=== PATIENT | female | born 2000 | race Caucasian/White ===

== ENCOUNTER 2018-03-15 23:45 | Outpatient (CLI) | payer OTHER ==
[2018-03-16 00:44] LABS: APPEARANCE,URINE SLIGHTLY-CLOUDY; BILIRUBIN,URINE NEGATIVE (NEGATIVE); COLOR,URINE YELLOW; GLUCOSE, URINE NEGATIVE (NEGATIVE); KETONES,URINE 20 mg/dL (NEGATIVE); LEUKOCYTE ESTERASE,URINE TRACE (NEGATIVE); NITRITE,URINE NEGATIVE (NEGATIVE); PROTEIN,URINE NEGATIVE (NEGATIVE); URINE SPECIFIC GRAVITY 1.028; UROBILINOGEN,URINE NEGATIVE mg/dL (<2.0)
[2018-03-16 01:05] LABS: URINE AMPHETAMINES SCREEN NEGATIVE; URINE BARBITURATES SCREEN NEGATIVE; URINE BENZODIAZEPINES SCREEN NEGATIVE; URINE COCAINE SCREEN NEGATIVE; URINE MARIJUANA (THC) SCREEN NEGATIVE; URINE METHADONE SCREEN NEGATIVE; URINE PHENCYCLIDINE SCREEN NEGATIVE
[2018-03-16] MEDS ORDERED: RINGERS SOLUTION,LACTATED 1,000 ML IV PRN (01:18)
--- NOTE | 2018-03-16 01:59 | RADIOLOGY REPORT (SQ) ---
EXAM DESCRIPTION: CLINICAL HISTORY: 17 years Female cervical length for contractions COMPLETED DATE/TME: 03/16/2018 00:00 COMPARISON: None. TECHNIQUE: Transabdominal duplex imaging performed to evaluate the pelvis. FINDINGS: Anterior placenta without evidence of abruption. heart rate 152 bpm. Cephalic presentation. Cervix measures 3.25 cm. Largest vertical pocket of amniotic fluid 6.7 cm. IMPRESSION: Cervical length 3.3 cm.
== END 2018-03-16 02:21 | disposition home or self-care (01) ==
LOC: LC 23:45
PROVIDERS: ATTEND Obstetrics & Gynecology
PROC: 4A1HXCZ Monitoring of Products of Conception, Cardiac Rate, External Approach (ICD-10-PCS; principal; 2018-03-15)
DX: O36.8120 Decreased fetal movements, second trimester, not applicable or unspecified (principal); O47.02 False labor before 37 completed weeks of gestation, second trimester; O99.282 Endocrine, nutritional and metabolic diseases complicating pregnancy, second trimester; E86.0 Dehydration; Z3A.26 26 weeks gestation of pregnancy
CPT/HCPCS: 76815; 80307; 81001

== ENCOUNTER 2018-05-20 17:42 | Outpatient (CLI) | payer OTHER ==
[2018-05-20 18:22] LABS: APPEARANCE,URINE CLOUDY; BILIRUBIN,URINE NEGATIVE (NEGATIVE); COLOR,URINE YELLOW; GLUCOSE, URINE NEGATIVE (NEGATIVE); KETONES,URINE NEGATIVE (NEGATIVE); LEUKOCYTE ESTERASE,URINE LARGE (NEGATIVE); NITRITE,URINE NEGATIVE (NEGATIVE); PROTEIN,URINE NEGATIVE (NEGATIVE); URINE SPECIFIC GRAVITY 1.021; UROBILINOGEN,URINE NEGATIVE mg/dL (<2.0)
[2018-05-20 18:45] LABS: URINE AMPHETAMINES SCREEN NEGATIVE; URINE BARBITURATES SCREEN NEGATIVE; URINE BENZODIAZEPINES SCREEN NEGATIVE; URINE COCAINE SCREEN NEGATIVE; URINE MARIJUANA (THC) SCREEN NEGATIVE; URINE METHADONE SCREEN NEGATIVE; URINE PHENCYCLIDINE SCREEN NEGATIVE
[2018-05-20] MEDS ORDERED: HYDROXYZINE PAMOATE 50 MG CAPSULE PO ONE (20:14)
[2018-05-20] MEDS ORDERED: HYDROXYZINE PAMOATE 50 MG CAPSULE ONE (20:15)
== END 2018-05-20 20:40 | disposition home or self-care (01) ==
LOC: LC 17:42
PROVIDERS: ATTEND Student in an Organized Health Care Education/Training Program
PROC: 4A1HXCZ Monitoring of Products of Conception, Cardiac Rate, External Approach (ICD-10-PCS; principal; 2018-05-20)
DX: Z34.93 Encounter for supervision of normal pregnancy, unspecified, third trimester (principal); Z3A.36 36 weeks gestation of pregnancy
CPT/HCPCS: 59025; 80307; 81005

== ENCOUNTER 2018-05-24 23:29 | Inpatient (IN) | payer OTHER ==
[2018-05-25 00:21] LABS: APPEARANCE,URINE SLIGHTLY-CLOUDY; BILIRUBIN,URINE NEGATIVE (NEGATIVE); COLOR,URINE YELLOW; GLUCOSE, URINE NEGATIVE (NEGATIVE); KETONES,URINE NEGATIVE (NEGATIVE); LEUKOCYTE ESTERASE,URINE NEGATIVE (NEGATIVE); NITRITE,URINE NEGATIVE (NEGATIVE); PROTEIN,URINE NEGATIVE (NEGATIVE); UROBILINOGEN,URINE NEGATIVE mg/dL (<2.0)
[2018-05-25] MEDS ORDERED: RINGERS SOLUTION,LACTATED 1,000 ML IV PRN (00:32)
[2018-05-25 00:34] LABS: URINE AMPHETAMINES SCREEN NEGATIVE; URINE BARBITURATES SCREEN NEGATIVE; URINE BENZODIAZEPINES SCREEN NEGATIVE; URINE COCAINE SCREEN NEGATIVE; URINE METHADONE SCREEN NEGATIVE; URINE PHENCYCLIDINE SCREEN NEGATIVE
[2018-05-25] MEDS ORDERED: MISOPROSTOL 0.1 MG TABLET PO ONE (00:36)
[2018-05-25 00:37] LABS: ABSOLUTE EOSINOPHILS # (AUTO) 0.1 10^3/uL (0.0-0.6); ABSOLUTE LYMPHOCYTES (AUTO) 2.1 10^3/uL (0.5-4.7); ABSOLUTE MONOCYTES (AUTO) 0.7 10^3/uL (0.1-1.4); ABSOLUTE NEUT (AUTO) 6.8 10^3/uL (1.7-8.2); BASOPHILS % (AUTO) 0.3 % (0-2); HEMATOCRIT 30.8 % (36.0-47.0); HEMOGLOBIN 10.7 g/dL (12.0-15.5); LYMPHOCYTES % (AUTO) 21.9 % (13-45); MEAN CORPUSCULAR HEMOGLOBIN 30.2 pg (27.0-33.4); MEAN CORPUSCULAR HGB CONC 34.6 g/dL (32.0-36.0); MEAN CORPUSCULAR VOLUME 87 fl (80-97); MONOCYTES % (AUTO) 7.2 % (3-13); PLATELET COUNT 394 10^3/uL (150-450); RED BLOOD COUNT 3.53 10^6/uL (3.72-5.28); RED CELL DISTRIBUTION WIDTH 12.7 % (11.5-14.0); SEGMENTED NEUTROPHILS % (AUTO) 69.6 % (42-78); TOTAL CELLS COUNTED % (AUTO) 100 %; WHITE BLOOD COUNT 9.8 10^3/uL (4.0-10.5)
[2018-05-25] MEDS ORDERED: PENICILLIN G POTASSIUM 5,000,000 UNIT in DEXTROSE 5%-WATER 100 ML IV ONE (00:37)
[2018-05-25] MEDS ORDERED: MISOPROSTOL 0.1 MG TABLET PV ONE (00:37)
[2018-05-25 00:39] LABS: URINE MARIJUANA (THC) SCREEN NEGATIVE
[2018-05-25] MEDS ORDERED: PENICILLIN G-K 5 MILLION UNIT VIAL ONE ×3 (00:42→08:39)
[2018-05-25] MEDS ORDERED: MISOPROSTOL 0.2 MG TABLET ONE ×2 (00:52→05:50)
[2018-05-25] MEDS ORDERED: MISOPROSTOL 0.1 MG TABLET ONE (00:53)
[2018-05-25] MEDS ORDERED: PROMETHAZINE HCL INJ 25 MG/1 ML VIAL ONE (02:33)
[2018-05-25] MEDS ORDERED: NALBUPHINE HCL INJ 10 MG/1 ML AMPULE ONE (02:33)
[2018-05-25] MEDS ORDERED: NALBUPHINE HCL INJ 10 MG/1 ML AMPULE INJ ONE (02:38)
[2018-05-25] MEDS ORDERED: PROMETHAZINE HCL INJ 25 MG/1 ML VIAL IV ONE (02:38)
[2018-05-25] MEDS ORDERED: OXYTOCIN/NORMAL SALINE 20 UNIT/1,000 ML RTUINJ IV PRN ×2 (05:00→09:26)
[2018-05-25] MEDS ORDERED: OXYTOCIN 10 UNIT/ML VIAL ONE (05:49)
[2018-05-25] MEDS ORDERED: OXYTOCIN/NORMAL SALINE 20 UNIT/1,000 ML RTUINJ ONE (05:50)
[2018-05-25] MEDS ORDERED: LIDOCAINE 1% INJ-PF (10 MG/ML) 30 ML SDV ONE (05:50)
[2018-05-25] MEDS: PENICILLIN G POTASSIUM 2,500,000 UNIT in DEXTROSE 5%-WATER 50 ML IV SCH ×2 (06:43→12:17)
[2018-05-25] MEDS ORDERED: FENTANYL CITRATE INJ/PF 100 MCG/2 ML AMPUL ONE (07:02)
--- NOTE | 2018-05-25 08:52 | L&D Progress Notes ---
PROGRESS NOTES Datetime Report Generated by CPN: 05/25/2018 08:51 PROGRESS NOTE Impression: Normal Progression of Labor; Reassuring Heart Rate Procedures: Sterile Vag Exam Plan: Continue Present Management; Anticipate Vaginal Delivery Vital Signs : Reviewed; Within Normal Limits Comment: pt uncomfortable w/ contractions. VE C/+3. Preparing to have pt start to push. Anticipate . Attending MD is Dr Rao VAGINAL EXAM Dilatation: 10 Dilatation: 4 Effacement: 100 Effacement: 80 Station: 3 Station: -1 MEMBRANES Pooling: Positive Membranes: Ruptured Membranes: Ruptured Amniotic Fluid Color: Clear Amniotic Fluid Color: Clear FETUS A FHR - Baseline: 135 Variability: Moderate 6-25bpm Accelerations: 15X15 Decelerations: None FHR Category: Category I : 36.6 Estimated Weight (gm): 3300 Presentation: Vertex SIGNATURE SIGNATURE: [id number] SIGNATURE: [id number] Assignment: Adali Rao MD Signature: with User ID: [email or web address] : with User ID: [email or web address]
[2018-05-25] MEDS ORDERED: ACETAMINOPHEN WITH CODEINE #3 TABLET PO PRN ×4 (09:26→12:57)
[2018-05-25] MEDS ORDERED: DIBUCAINE 1% OINTMENT 28 GM TP PRN ×2 (09:26→12:57)
[2018-05-25] MEDS ORDERED: ZOLPIDEM TARTRATE 5 MG TABLET PO PRN ×2 (09:26→12:57)
[2018-05-25] MEDS ORDERED: BENZOCAINE/MENTHOL AEROSOL SPRAY 56 ML TOP PRN ×2 (09:26→12:57)
[2018-05-25] MEDS ORDERED: MEASLES,MUMPS&RUBELLA VACC/PF 0.5 ML VIAL SUBCUT PRN ×2 (09:26→12:57)
[2018-05-25] MEDS ORDERED: DIPH/PERTUSS(ACELL)/TETANUS VAC/PF 0.5 ML SYR (>=10YO) IM PRN ×2 (09:26→12:57)
[2018-05-25] MEDS ORDERED: IBUPROFEN 800 MG TABLET ONE (09:35)
[2018-05-25] MEDS ORDERED: DOCUSATE SODIUM 100 MG CAPSULE PO SCH (10:00)
[2018-05-25] MEDS ORDERED: PRENATAL VITAMIN W DHA CAPSULE PO SCH (10:00)
[2018-05-25] MEDS ORDERED: FERROUS SULFATE 325 MG TABLET PO SCH (10:00)
[2018-05-25] MEDS ORDERED: SENNOSIDES/DOCUSATE 8.6-50 MG 1 EACH TABLET PO SCH (10:00)
--- NOTE | 2018-05-25 11:09 | Delivery Summary ---
Del Sum A-C Datetime Report Generated by CPN: 05/25/2018 11:09 DELIVERY PERSONNEL DELIVERY PERSONNEL: [id number] Delivery Doctor:: Kristine Galeano CNM Labor and Delivery Nurse:: Prema Mondragon RNcirculation clerk Nurse:: Radha Partida RN Nursery Nurse:: Leora Stewart RN Student Observers:: Geno Glover RN, Basilia Amezcua/KAN: [facility] Additional Personnel: : Yanira William RN MATERNAL INFORMATION Delivery Anesthesia: None Medications After Delivery: Pitocin Drip 20 Units/1000ml NSS; Other-Please Comment Meds After Delivery Comment: Cytotec 200 mcg SL per verbal order. Maternal Complications: None Provider Comments: of viable male infant. Tight NC, unable to reduce. Delivered RENETTA. Baby placed on pts chest, crying and in stable condition. Cord clamped and cut after one minute. Cord blood collected. Placenta S/C/I, sent to pathology due to 36 wk delivery. IV Pitocin and 200 mcg SL Cytotec given. Rt labia minora laceration hemostatic and no repair needed. Mother and baby skin to skin in stable condition. Pt plans to breastfeed. QBL is 150 ml. LABOR SUMMARY EDC: 06/16/2018 00:00 No. Babies in Womb: 1 Attempted: No Labor Anesthesia: None LABOR INFORMATION Reason for Induction: Not Applicable Onset of Labor: 05/25/2018 05:40 Complete Dilatation: 05/25/2018 08:42 Oxytocin: Augmentation Group B Beta Strep: Unknown (Annotations: Data stored by N on behalf of user) Antibiotics # of Doses: 2 Antibiotics Time of Last Dose: 0550 Name of Antibiotic Given: Penicillin Steroids Given: None Reason Steroids Not Administered: Not Applicable Other Reason Not Administered: n/a MEMBRANES Membranes Rupture Method: Spontaneous Rupture of Membranes: 05/24/2018 23:15 Length of Rupture (hr): 9.87 Amniotic Fluid Color: Clear Amniotic Fluid Amount: Small Amniotic Fluid Odor: Normal STAGES OF LABOR Stage 1 hr: 3 Stage 1 min: 2 Stage 2 hr: 0 Stage 2 min: 25 Stage 3 hr: 0 Stage 3 min: 4 Total Time in Labor hr: 3 Total Time in Labor min: 31 VAGINAL DELIVERY Episiotomy: None Laceration Extension #1: N/A Other Laceration: Right labial. No repair needed. Laceration Repair: No Sponge Count Correct: No Sharps Count Correct: N/A BABY A INFORMATION Infant Delivery Date/Time: 05/25/2018 09:07 Method of Delivery: Vaginal Born in Route : No : N/A Forceps: N/A Vacuum Extraction: N/A Shoulder Dystocia : No PRESENTATION/POSITION BABY A Presentation: Cephalic Cephalic Presentation: Vertex Vertex Position: Left Occipital Anterior Breech Presentation: N/A PLACENTA INFORMATION BABY A Placenta Delivery Time : 05/25/2018 09:11 Placenta Method of Delivery: Spontaneous Placenta Status: Delivered SCORES BABY A Heart Rate 1 min: >100 bpm Resp Effort 1 min: Good Cry Reflex Irritability 1 min: Cough or Sneeze or Pulls Away Muscle Tone 1 min: Active Motion Color 1 min: Blue/Pale Resuscitation Effort 1 min: Tactile Stimulation SCORE 1 MIN: 8 Heart Rate 5 min: >100 bpm Resp Effort 5 min: Good Cry Reflex Irritability 5 min: Cough or Sneeze or Pulls Away Muscle Tone 5 min: Active Motion Color 5 min: Body [place], Extremities Blue Resuscitation Effort 5 min: N/A SCORE 5 MIN: 9 INFORMATION BABY A Gestational Age at Delivery: 36.6 Gestational Status: Late - 34- 36.6 Weeks Infant Outcome : Liveborn Condition : Stable Sex: Male IDENTIFICATION BABY A Verification Date/Time: 05/25/2018 09:19 ID Band Number: [id number] Mother's Name Verified: Yes Infant RN Verifying : Vito William RN, Quan Rodriguez RN Additional Verifying Personnel: JOHNNY Hernandez WEIGHT/LENGTH BABY A Infant Birthweight (gm): 2975 Infant Weight (lb): 6 Weight (oz): 9 Length (in): 19.00 Length (cm): 48.26 CORD INFORMATION BABY A No. Cord Vessels: 3 Nuchal Cord : Around Neck x1, Tight Cord Blood Taken: Yes-For Eval (Mom's Blood Type - or O+) Suction: Mouth; Nose ASSESSMENT BABY A Infant Complications: None Physical Findings at Delivery: Within Normal Limits; Caput Succedaneum Infant Respirations: Appears Normal Skin to Skin: Yes Linux Kernel Developer/ALS Called : No Care By: Janel Stewart RN Transferred To: Remains with Mother BABY B INFORMATION : N/A SIGNATURES Assignment: Adali Rao MD Signature: with User ID: [email or web address] : with User ID: [email or web address]
--- NOTE | 2018-05-25 11:44 | Admission Physical ---
Datetime Report Generated by CPN: 05/25/2018 11:44 CURRENT ADMISSION Chief Complaint: Scheduled Induction of Labor Indication for Induction: PROM Admit Impression : , Intrauterine ; Ruptured Membranes Admit Plan: Admit to Unit; Initiate Labor Augmentation Protocol ALLERGIES Medication Allergies: Yes Medication Allergies: nadolol/Alopecia (05/24/2018) Medication Allergies: nadolol/Alopecia (05/20/2018) Medication Allergies: nadolol/Alopecia (03/16/2018) Latex: No Latex Allergies OBSTETRICAL HISTORY EDC: 06/16/2018 00:00 : 2 Para: 0 Term: 0 : 0 SAB: 1 IAB: 0 Ectopic: 0 Livin Cesareans: 0 VBACs: 0 Multiple Births: 0 Gestational Diabetes: No Rh Sensitization: No Incompetent Cervix: No VICTORIANO: No Infertility: No ART Treatment: No Uterine Anomaly: No IUGR: No Hx Previous C/S: No Macrosomia: No Hx Loss/Stillborn: No PIH: No Hx : No Placenta Previa/Abruption: No Depression/PP Depression: No PTL/PROM: No Post Hemorrhage: No Current Procedures: Ultrasound Obstetrical History Comments: G1 - D/C at 9 weeks G2 - Current SEE RECORDS Alcohol: No Marijuana : No Cocaine: No Other Illicit Drugs: No Cigarettes: Never Smoker. [id number] MEDICAL HISTORY Diabetes: No Blood Transfusion: No Pulmonary Disease (Asthma, TB): Yes Breast Disease: No Hypertension: No Nutritional Services Host Surgery: No Heart Disease: No Hosp/Surgery: Yes Autoimmune Disorder: No Anesthetic Complications: No Kidney Disease: No Abnormal Pap Smear: No Neuro/Epilepsy: No Psychiatric Disorders: No Other Medical Diseases: No Hepatitis/Liver Disease: No Significant Family History: No Varicosities/Phlebitis: No Trauma/Violence : No Thyroid Dysfunction: No Medical History Comments: Chronic Migraines, D/C INFECTIOUS HISTORY Gonorrhea: No Genital Herpes: No Chlamydia: No Tuberculosis: No Syphilis: No Hepatitis: No HIV/AIDS Exposure: No Rash or Viral Illness: No HPV: No PHYSICAL EXAM General: Normal HEENT: Normal Neurologic: Normal Thyroid: Normal Heart: Normal Lungs: Normal Breast: Normal Back: Normal Abdomen: Normal Genitourinary Exam: Normal Extremities: Normal DTRs: Normal Pelvic Type: Adequate Vital Signs: Reviewed VAGINAL EXAM Dilatation: 10 Dilatation: 4 Effacement: 100 Effacement: 80 Station: 3 Station: -1 MEMBRANES Pooling: Positive Membranes: Ruptured Membranes: Ruptured Amniotic Fluid Color: Clear Amniotic Fluid Color: Clear FETUS A EGA: 36.6 Monitoring: External US FHR- Baseline: 130 Variability: Moderate 6-25bpm Accelerations: 15X15 Decelerations: None FHR Category: Category I Estimated Weight (gm): 3300 Presentation: Vertex PLANS FOR LABOR AND DELIVERY Labor and Delivery: None Pain Management: Natural; Medications Feeding Preference: Breast Benefit of Breast Feed Discussed: Yes Circumcision: Yes INFORMED CONSENT Signature: with User ID: [email or web address]
[2018-05-25] MEDS ORDERED: PSEUDOEPHEDRINE HCL 30 MG TABLET PO PRN (12:57)
[2018-05-25] MEDS ORDERED: PROMETHAZINE HCL INJ 25 MG/1 ML VIAL IV PRN (12:57)
[2018-05-25] MEDS ORDERED: DIPHENHYDRAMINE HCL 25 MG CAPSULE PO PRN (12:57)
[2018-05-25] MEDS ORDERED: PROMETHAZINE HCL 25 MG TABLET PO PRN (12:57)
[2018-05-25] MEDS ORDERED: MAGNESIUM HYDROXIDE SUSP 30 ML UDCUP PO PRN (12:57)
[2018-05-25] MEDS ORDERED: PROMETHAZINE HCL 25 MG SUPP.RECT PR PRN (12:57)
[2018-05-25] MEDS ORDERED: ACETAMINOPHEN 650 MG SUPP.RECT PR PRN (12:57)
[2018-05-25] MEDS ORDERED: NA PHOS,M-B/NA PHOS,DI-BA (ADULT) 133 ML ENEMA PR PRN (12:57)
[2018-05-25] MEDS ORDERED: GLYCERIN/WITCH HAZEL LEAF 1 EACH MED..PAD TP PRN (12:57)
[2018-05-25] MEDS ORDERED: IBUPROFEN 800 MG TABLET PO SCH (14:00)
[2018-05-25] MEDS: IBUPROFEN 800 MG TABLET PO SCH ×2 (15:19→21:27)
[2018-05-25] MEDS: FERROUS SULFATE 325 MG TABLET PO SCH (17:50)
[2018-05-25] MEDS: DOCUSATE SODIUM 100 MG CAPSULE PO SCH (17:50)
[2018-05-25] MEDS: FAMOTIDINE 20 MG TABLET PO SCH (21:27)
[2018-05-26] MEDS: IBUPROFEN 800 MG TABLET PO SCH ×3 (05:26→21:08)
[2018-05-26 07:42] LABS: HEMATOCRIT 27.7 % (36.0-47.0); HEMOGLOBIN 9.4 g/dL (12.0-15.5); MEAN CORPUSCULAR HEMOGLOBIN 29.7 pg (27.0-33.4); MEAN CORPUSCULAR HGB CONC 33.7 g/dL (32.0-36.0); MEAN CORPUSCULAR VOLUME 88 fl (80-97); PLATELET COUNT 331 10^3/uL (150-450); RED BLOOD COUNT 3.15 10^6/uL (3.72-5.28); RED CELL DISTRIBUTION WIDTH 13.1 % (11.5-14.0); WHITE BLOOD COUNT 11.4 10^3/uL (4.0-10.5)
--- NOTE | 2018-05-26 09:27 | PDOC PROGRESS REPORT ---
Subjective-OB Progress Note for:: 05/26/18 Subjective: Doing well, hsb at BS, no c/o, Physical Exam (OB) Vital Signs: Temp Pulse Resp BP Pulse Ox 98.3 F 75 18 115/64 98 05/26/18 07:29 05/26/18 07:29 05/26/18 07:29 05/26/18 07:29 05/26/18 07:29 Intake & Output 05/25/18 05/26/18 05/27/18 06:59 06:59 06:59 Intake Total 1999 Balance 1999 Weight 73.3 kg - PIH/Pre-Eclampsia Clonus: Negative Headache: Absent Epigastric Pain: No Visual Changes: No - Lochia Lochia Amount: Scant < 10 ml Lochia Color: Rubra/Red - Abdomen Description: Soft Hernia Present: No Fundal Description: Firm Fundal Height: u/u - u/2 Objective-Diagnostic Laboratory: 05/26/18 07:18 05/26/18 05/26/18 07:18 07:18 WBC 11.4 H RBC 3.15 L Hgb 9.4 L Hct 27.7 L MCV 88 MCH 29.7 MCHC 33.7 RDW 13.1 Plt Count 331 Blood Type O NEGATIVE Assessment and Plan(PN) - Assessment and Plan (1) Obstetric labial laceration, delivered, current hospitalization Is this a current diagnosis for this admission?: Yes (2) Vaginal delivery Is this a current diagnosis for this admission?: Yes (3) premature rupture of membranes Qualifiers: PROM onset of labor timing: onset of labor within 24 hours of rupture Qualified Code(s): O42.019 - premature rupture of membranes, onset of labor within 24 hours of rupture, unspecified trimester Is this a current diagnosis for this admission?: Yes - Time Spent with Patient Time with patient: Less than 15 minutes Medications reviewed and adjusted accordingly: Yes - Disposition Anticipated Discharge: Home Within: within 24 hours
[2018-05-26] MEDS ORDERED: PROMETHAZINE HCL INJ 25 MG/1 ML VIAL IV PRN (09:30)
[2018-05-26] MEDS ORDERED: DIPH/PERTUSS(ACELL)/TETANUS VAC/PF 0.5 ML SYR (>=10YO) IM PRN (09:30)
[2018-05-26] MEDS ORDERED: MEASLES,MUMPS&RUBELLA VACC/PF 0.5 ML VIAL SUBCUT PRN (09:30)
[2018-05-26] MEDS: PRENATAL VITAMIN W DHA CAPSULE PO SCH (10:59)
[2018-05-26] MEDS: FERROUS SULFATE 325 MG TABLET PO SCH ×2 (10:59→17:26)
[2018-05-26] MEDS: SENNOSIDES/DOCUSATE 8.6-50 MG 1 EACH TABLET PO SCH (10:59)
[2018-05-26] MEDS: DOCUSATE SODIUM 100 MG CAPSULE PO SCH ×2 (10:59→17:26)
[2018-05-26] MEDS: FAMOTIDINE 20 MG TABLET PO SCH ×2 (10:59→21:06)
[2018-05-27] MEDS: IBUPROFEN 800 MG TABLET PO SCH ×2 (05:59→14:17)
[2018-05-27 09:06] VITALS: BP 116/61
[2018-05-27] MEDS: SENNOSIDES/DOCUSATE 8.6-50 MG 1 EACH TABLET PO SCH (09:34)
[2018-05-27] MEDS: PRENATAL VITAMIN W DHA CAPSULE PO SCH (09:34)
[2018-05-27] MEDS: FERROUS SULFATE 325 MG TABLET PO SCH (09:34)
[2018-05-27] MEDS: FAMOTIDINE 20 MG TABLET PO SCH (09:34)
[2018-05-27] MEDS: DOCUSATE SODIUM 100 MG CAPSULE PO SCH (09:34)
--- NOTE | 2018-05-27 09:36 | PDOC DISCHARGE SUMMARY ---
Final Diagnosis Discharge Date: 05/27/18 - Final Diagnosis (1) Obstetric labial laceration, delivered, current hospitalization Is this a current diagnosis for this admission?: Yes (2) Vaginal delivery Is this a current diagnosis for this admission?: Yes (3) premature rupture of membranes Is this a current diagnosis for this admission?: Yes (4) Anemia complicating , third trimester Is this a current diagnosis for this admission?: Yes Discharge Data - Discharge Medication Prescriptions: Ibuprofen [Motrin 800 mg Tablet] 800 mg PO Q8HP PRN #30 tablet PRN Reason: Abdominal Cramping Docusate Sodium [Colace 100 mg Capsule] 100 mg PO BID #60 capsule Ferrous Sulfate [Feosol 325 mg Tablet] 325 mg PO BID #60 tablet Home Medications: Pnv No.103/Folic/Om3s/Fish Oil [ Gummies] 1 each PO DAILY 03/16/18 Butalb/Acetaminophen/Caffeine [Fioricet 50-300-40 mg Capsule] 1 cap PO Q4 PRN Docusate Sodium [Colace 100 mg Capsule] 100 mg PO BID #60 capsule 05/27/18 Ferrous Sulfate [Feosol 325 mg Tablet] 325 mg PO BID #60 tablet 05/27/18 Ibuprofen [Motrin 800 mg Tablet] 800 mg PO Q8HP PRN #30 tablet 05/27/18 Reason(s) for Admission: PROM, Labor Procedures: Ultrasound Intrapartum Procedure(s): Spontaneous Vaginal Delivery Complication(s): Laceration-Labial - Diagnosis Test Laboratory: Temp Pulse Resp BP Pulse Ox 98.6 F 88 14 116/61 97 05/27/18 08:00 05/27/18 08:00 05/27/18 08:00 05/27/18 08:00 05/27/18 08:00 05/24/18 05/25/18 05/26/18 23:40 00:27 07:18 RBC 3.53 L 3.15 L Hgb 10.7 L 9.4 L Hct 30.8 L 27.7 L Urine Opiates Screen NEGATIVE - Discharge information/Instructions Discharge Activity: Balance Activity w/Rest, No Lifting Over 10 Pounds, Pelvic Rest, No tub bath, Walk Frequently Discharge Diet: As Tolerated, Regular Disposition: HOME, SELF-CARE Follow up with: [facility] in: 4, Weeks
== END 2018-05-27 14:39 | disposition home or self-care (01) | DRG 807 ==
LOC: LC 23:29 → LR 05-25 00:12 → 2N 05-25 11:39
PROVIDERS: ADMIT Obstetrics & Gynecology; ATTEND Obstetrics & Gynecology
PROC: 10E0XZZ Delivery of Products of Conception, External Approach (ICD-10-PCS; principal; 2018-05-25)
PROC: 4A1HXCZ Monitoring of Products of Conception, Cardiac Rate, External Approach (ICD-10-PCS; 2018-05-25)
PROC: 3E0234Z Introduction of Serum, Toxoid and Vaccine into Muscle, Percutaneous Approach (ICD-10-PCS; 2018-05-26)
DX: O42.013 Preterm premature rupture of membranes, onset of labor within 24 hours of rupture, third trimester (principal); Z37.0 Single live birth; O26.893 Other specified pregnancy related conditions, third trimester; Z67.41 Type O blood, Rh negative; O99.02 Anemia complicating childbirth; D64.9 Anemia, unspecified; O69.1XX0 Labor and delivery complicated by cord around neck, with compression, not applicable or unspecified; Z88.8 Allergy status to other drugs, medicaments and biological substances; Z3A.36 36 weeks gestation of pregnancy
CPT/HCPCS: 36415; 80307; 81001; 84112; 85025; 85027; 85461; 86592; 86850; 86870; 86900; 86901; 88307; J2300; J2540; J2550; J2590; J2790; J3010; J3490

== ENCOUNTER 2018-09-28 18:12 | Emergency (ER) | payer OTHER ==
[2018-09-28 18:20] VITALS: BP 118/58
--- NOTE | 2018-09-28 19:31 | ER Document Report ---
ED Head/Face/Scalp Injury - General Chief Complaint: Head Injury Stated Complaint: HEAD INJURY Time Seen by Provider: 09/28/18 19:07 Primary Care Provider: DARREL MAHAN MD [Primary Care Provider] - Follow up as needed Mode of Arrival: Ambulatory Information source: Patient Notes: 17-year-old female presents to ED for complaint of head injury at work today. She states she was working under the gray of a car when she lifted her head hitting her forehead on the gray. She states she did not have any loss of consciousness she has had some dizziness and vomiting. She stated she vomited 3 times over the next 45 minutes and no vomiting since then. TRAVEL OUTSIDE OF THE [place] IN LAST 30 DAYS: No - HPI Patient complains to provider of: Contusion, Injury, Pain, Swelling Injury to: Forehead Location of problem: Forehead Occurred: Just prior to arrival Where: Public place, Work Timing: Better Context: Direct blow, Other - Instantly became dizzy and vomited did not lose conscious Loss consciousness: No loss of consciousness Remembers: Injury, Coming to hospital - Related Data Allergies/Adverse Reactions: nadolol Adverse Reaction (Verified 05/24/18 23:42) Alopecia Past Medical History - General Information source: Patient Last Menstrual Period: now - Social History Smoking Status: Never Smoker Cigarette use (# per day): No Chew tobacco use (# tins/day): No Smoking Education Provided: No Frequency of alcohol use: None Drug Abuse: None 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 Lives with: Spouse/Significant other Family History: Reviewed & Not Pertinent Patient has suicidal ideation: No Patient has homicidal ideation: No - Past Medical History Cardiac Medical History: Reports: None Pulmonary Medical History: Reports: None EENT Medical History: Reports: None Neurological Medical History: Reports: Hx Migraine Endocrine Medical History: Reports: None Renal/ Medical History: Reports: None Malignancy Medical History: Reports: None GI Medical History: Reports: None Musculoskeletal Medical History: Reports None Skin Medical History: Reports None Psychiatric Medical History: Reports: None Traumatic Medical History: Reports: None Infectious Medical History: Reports: None Past Surgical History: Reports: Hx Dilation and Curettage - Immunizations Immunizations up to date: Yes Hx Diphtheria, Pertussis, Tetanus Vaccination: Yes Review of Systems - Review of Systems Constitutional: No symptoms reported EENT: No symptoms reported Cardiovascular: Dizziness Respiratory: No symptoms reported Gastrointestinal: Vomiting Genitourinary: No symptoms reported Female Genitourinary: No symptoms reported Musculoskeletal: No symptoms reported Skin: No symptoms reported Hematologic/Lymphatic: No symptoms reported Neurological/Psychological: Headaches. denies: Lost consciousness -: Yes All other systems reviewed and negative Physical Exam - Vital signs Vitals: Temp Pulse Resp BP Pulse Ox 98.6 F 77 16 118/58 L 100 09/28/18 18:19 09/28/18 18:19 09/28/18 18:19 09/28/18 18:19 09/28/18 18:19 Interpretation: Normal - General General appearance: Appears well, Alert - HEENT Head: Ecchymosis, Tenderness Eyes: Normal Pupils: PERRL Visual price normal: Yes Ears: Normal External canal: Normal Tympanic membrane: Normal Sinus: Normal Nasal: Normal Mouth/Lips: Normal Mucous membranes: Normal Pharynx: Normal - Respiratory Respiratory status: No respiratory distress Chest status: Nontender Breath sounds: Normal Chest palpation: Normal - Cardiovascular Rhythm: Regular Heart sounds: Normal auscultation Murmur: No - Abdominal Inspection: Normal Distension: No distension Bowel sounds: Normal Tenderness: Nontender Organomegaly: No organomegaly - Back Back: Normal, Nontender - Extremities General upper extremity: Normal inspection, Nontender, Normal color, Normal ROM, Normal temperature General lower extremity: Normal inspection, Nontender, Normal color, Normal ROM, Normal temperature, Normal weight bearing. No: Gianluca's sign - Neurological Neuro grossly intact: Yes Cognition: Normal Orientation: AAOx4 Pipe Coma Scale Eye Opening: Spontaneous [place] Coma Scale Verbal: Oriented Pipe Coma Scale Motor: Obeys Commands Pipe Coma Scale Total: 15 Speech: Normal Cranial nerves: Normal Cerebellar coordination: Normal Motor strength normal: LUE, RUE, LLE, RLE Additional motor exam normals: Equal social insurance analyst Babinski reflex: Normal (flexor plantar) Sensory: Normal Biceps - Reflex grade: 2 = Normal Triceps - Reflex grade: 2 = Normal Brachioradialis - Reflex grade: 2 = Normal Knee - Reflex grade: 2 = Normal Ankle - Reflex grade: 2 = Normal - Psychological Associated symptoms: Normal affect, Normal mood - Skin Skin Temperature: Warm Skin Moisture: Dry Skin Color: Normal Course - Re-evaluation Re-evalutation: 09/28/18 19:50 Head injury precautions and concussion instructions given to patient before discharge. Patient significant other was in the room and he verbalized understanding and agreement with treatment plan. Patient will be discharged home with instructions to be off tomorrow in the return to work the next day. Patient verbalized understanding and agreement with this. Patient was discharged home after receiving Tylenol and Zofran and given a prescription of Zofran. - Vital Signs Vital signs: Temp Pulse Resp BP Pulse Ox 98.6 F 77 16 118/58 L 100 09/28/18 18:19 09/28/18 18:19 09/28/18 18:19 09/28/18 18:19 09/28/18 18:19 Discharge - Discharge Clinical Impression: Head injury Qualifiers: Encounter type: initial encounter Qualified Code(s): S09.90XA - Unspecified injury of head, initial encounter Condition: Stable Disposition: HOME, SELF-CARE Additional Instructions: Head Injury Precautions At this point, there is no evidence that your head injury is serious. Observation is necessary, however. Take only clear liquids for the first few hours, unless told otherwise by the doctor. If no pain medication was prescribed, you may take acetaminophen according to the directions on the bottle. Do not take any medication that may alter your level of alertness (unless you've discussed it with the doctor first). Limit activity for the first 24 hours. Bed rest is best. During the first 24 hours, check to see approximately every two to three hours that the patient is easily arousable, responds normally, and can perform common tasks such as walking without difficulty. Contact your doctor or go to the hospital if any of the following things occur: Persistent vomiting, difficulty in arousing the patient, worsening or continued headache, or failure to improve as expected. Head injuries can cause symptoms that persist for a few days or even a few weeks. Concussion You have suffered a concussion -- a temporary loss of certain brain functions due to a mild brain injury. The recovery is usually rapid and complete. The temporary problems occurring with a concussion can include loss of consciousness, dizziness, nausea, vomiting, and confusion. Repeat concussions can cause brain damage. In the future, avoid activities that will cause a blow to your head. Wear a helmet for sports such as snowboarding, biking, or skating. It's important that someone be with you for the first 24 hours. During this time, do not exercise or drive a vehicle. Do not take any pain medication str onger than acetaminophen unless prescribed by the physician. Any significant changes should be reported immediately to the physician. Signs of a problem may include: (1) Mental confusion (2) Incoordination or staggering (3) Repeated or forceful vomiting (4) Clear or bloody drainage from ear, mouth, or nose (5) Severe headache, not relieved by acetaminophen or prescribed pain medication (6) Failure to improve in 24 hours Acetaminophen Acetaminophen may be taken for pain relief or fever control. It's much safer than aspirin, offering a wider range of "safe" dosages. It is safe during . Some brand names are Tylenol, Panadol, Datril, Anacin 3, Tempra, and Liquiprin. Acetaminophen can be repeated every four hours. The following are maximum recommended dosages: WEIGHT Dose Drops Elixir Chewable(80mg) (LBS.) drprs=droppers tsp=teaspoon 6 40 mg .4 ml (1/2) 6-11 80 mg .8 ml (full) 1/2 tsp 1 tab 12-16 120 mg 1 1/2 drprs 3/4 tsp 1 1/2 tabs 17-23 160 mg 2 drprs 1 tsp 2 tabs 24-30 240 mg 3 drprs 1 1/2 tsp 3 tabs 30-35 320 mg 2 tsp 4 tabs 36-41 360 mg 2 1/4 tsp 4 1/2 tabs 42-47 400 mg 2 1/2 tsp 5 tabs 48-53 480 mg 3 tsp 6 tabs 54-59 520 mg 3 1/4 tsp 6 1/2 tabs 60-64 560 mg 3 1/2 tsp 7 tabs 65-70 600 mg 3 3/4 tsp 7 1/2 tabs 71-76 640 mg 4 tsp 8 tabs 77-82 720 mg 4 1/2 tsp 9 tabs 83-88 800 mg 5 tsp 10 tabs >89 pounds or adults 650 mg to 900 mg Acetaminophen can be repeated every four hours. Maximum daily dose not to exceed 4000 mg. These maximum recommended dosages are slightly higher than the dosages written on the product container, but these dosages are very safe and well below the toxic dosage for acetaminophen. Antinausea Medication You have been given a medication to suppress nausea and vomiting. This type of medication can be given as a shot, pill, or suppository. It will usually last for many hours. Pills and shots usually last six to eight hours, suppositories last about 12 hours. For the typical illness, only one or two doses of the medication may be necessary. Mild lightheadedness may occur. This type of medicine can cause drowsiness. Do not drive or operate dangerous machinery while under its influence. Do not mix with alcohol. See your doctor at once if you have muscle spasms or tightness, or uncontrollable motions (particularly of the neck, mouth, or jaw). Persistent v omiting or severe lightheadedness should also be evaluated by the physician. FOLLOW-UP CARE: If you have been referred to a physician for follow-up care, call the physicians office for an appointment as you were instructed or within the next two days. If you experience worsening or a significant change in your symptoms, notify the physician immediately or return to the Emergency Department at any time for re-evaluation. Prescriptions: Ondansetron [Zofran Odt 4 mg Tablet] 1 tab PO Q6H #15 tab.rapdis Forms: Return to Work Referrals: DARREL MAHAN MD [Primary Care Provider] - Follow up in 3-5 days
[2018-09-28] MEDS ORDERED: ONDANSETRON 4 MG TAB.RAPDIS PO ONE (19:32)
[2018-09-28] MEDS ORDERED: ACETAMINOPHEN 325 MG TABLET PO ONE (19:32)
== END 2018-09-28 19:43 | disposition home or self-care (01) ==
LOC: ER 18:12
DX: S00.93XA Contusion of unspecified part of head, initial encounter (principal); W22.8XXA Striking against or struck by other objects, initial encounter; Y93.89 Activity, other specified; Y99.0 Civilian activity done for income or pay; R42 Dizziness and giddiness; R11.10 Vomiting, unspecified
CPT/HCPCS: 99283; S0119

== ENCOUNTER 2018-12-09 18:52 | Emergency (ER) | payer OTHER ==
[2018-12-09 19:14] VITALS: BP 126/64
== END 2018-12-09 21:06 | disposition left against medical advice (07) ==
LOC: ER 18:52
DX: Z53.21 Procedure and treatment not carried out due to patient leaving prior to being seen by health care provider (principal)

== ENCOUNTER 2018-12-26 12:21 | Day surgery (SDC) | payer OTHER ==
[2018-12-26] MEDS ORDERED: DOXYCYCLINE HYCLATE 100 MG in DEXTROSE 5%-WATER 250 ML IV PRN (12:36)
[2018-12-26] MEDS ORDERED: GLYCOPYRROLATE 1 MG/5 ML VIAL ONE (13:09)
[2018-12-26] MEDS ORDERED: ONDANSETRON HCL INJ/PF 4 MG/2 ML SDV ONE (13:09)
[2018-12-26] MEDS ORDERED: KETOROLAC TROMETHAMINE 60 MG/2 ML SDV ONE (13:09)
[2018-12-26 13:16] LABS: HEMATOCRIT 35.3 % (36.0-47.0); MEAN CORPUSCULAR HGB CONC 33.9 g/dL (32.0-36.0); MEAN CORPUSCULAR VOLUME 89 fl (80-97); PLATELET COUNT 435 10^3/uL (150-450); RED BLOOD COUNT 3.99 10^6/uL (3.72-5.28); RED CELL DISTRIBUTION WIDTH 12.7 % (11.5-14.0); WHITE BLOOD COUNT 6.2 10^3/uL (4.0-10.5)
[2018-12-26] MEDS ORDERED: KETAMINE HCL INJ 500 MG/10 ML VIAL ONE (13:37)
[2018-12-26] MEDS ORDERED: MIDAZOLAM 2 MG/2 ML INJ ONE (13:37)
[2018-12-26] MEDS ORDERED: FENTANYL CITRATE INJ/PF 100 MCG/2 ML AMPUL ONE (13:37)
[2018-12-26] MEDS ORDERED: PROPOFOL INJ 200 MG/20 ML VIAL IV ONE (13:38)
[2018-12-26] MEDS ORDERED: MEPERIDINE HCL/PF INJ 25 MG/1 ML DISP.SYRIN IV PRN (14:16)
[2018-12-26] MEDS ORDERED: MORPHINE SULFATE 10 MG/ML INJ IV PRN (14:16)
[2018-12-26] MEDS ORDERED: DIPHENHYDRAMINE HCL 50 MG/ML VIAL IV PRN (14:16)
[2018-12-26] MEDS ORDERED: PROMETHAZINE HCL INJ 25 MG/1 ML VIAL IV PRN ×2 (14:16)
[2018-12-26] MEDS ORDERED: FENTANYL CITRATE INJ/PF 100 MCG/2 ML AMPUL IV PRN ×3 (14:16)
--- NOTE | 2018-12-26 14:54 | OPERATIVE REPORT E ---
Operative Report NAME: YASH GIL : 2000 AGE: 18Y DATE OF SURGERY: 12/26/2018 ROOM: PREOPERATIVE DIAGNOSIS: RETAINED PRODUCTS OF CONCEPTION. POSTOPERATIVE DIAGNOSIS: RETAINED PRODUCTS OF CONCEPTION. OPERATION: SUCTION D AND C. SURGEON: DARREL MAHAN M.D. ANESTHESIA: Dr. Mitchell, [facility]. FINDINGS: The uterus sounded to approximately 8 cm. Scant tissue was obtained. COMPLICATIONS: None. ESTIMATED BLOOD LOSS: 100 mL. SPECIMENS REMOVED: Products of conception. PROCEDURE: The patient was taken to the operating room, prepared and draped in normal sterile fashion in dorsal lithotomy position. Under sterile conditions, the in and out catheterization was performed with approximately 150 mL of clear urine. A sterile speculum was placed in the vagina and the cervix was grasped on the anterior lip with a single-tooth tenaculum and prepped with Betadine. The uterus was then sounded to approximately 8 cm, as stated above, and the cervix was then dilated to accommodate an 8 mm curved curette. Suction curettage was performed without difficulty, again with scant tissue obtained. A sharp curettage was then performed with the Kevorkian curette with very minimal tissue obtained. The suction curette was then passed once more. This again produced very little products, and a sharp curettage was performed. The fundus was noted easily. No evidence of perforation, but again just very little products obtained. At this point, the procedure was discontinued and the instruments were removed. The patient was taken to the PACU in stable condition, and the sponge and needle counts were correct x2. DICTATING PHYSICIAN: DARREL MAHAN M.D. [id number] PHY#: [id number] ID: [id number] JOB#: [id number] ACCT: [id number] cc:DARREL MAHAN M.D. >
[2018-12-26] MEDS ORDERED: MORPHINE SULFATE 10 MG/ML INJ IM PRN (15:10)
[2018-12-26] MEDS ORDERED: IBUPROFEN 800 MG TABLET PO PRN (15:11)
[2018-12-26] MEDS ORDERED: HYDROCODONE/ACETAMINOPHEN 5-325 MG TABLET PO PRN ×2 (15:11→15:13)
[2018-12-26] MEDS ORDERED: RINGERS SOLUTION,LACTATED 1,000 ML IV PRN (15:19)
[2018-12-26 16:36] VITALS: BP 109/66
== END 2018-12-26 16:30 | disposition home or self-care (01) ==
LOC: OROUT 12:21
PROVIDERS: ATTEND Obstetrics & Gynecology
DX: O03.4 Incomplete spontaneous abortion without complication (principal); J45.909 Unspecified asthma, uncomplicated; Z67.41 Type O blood, Rh negative; D64.9 Anemia, unspecified; G43.909 Migraine, unspecified, not intractable, without status migrainosus
CPT/HCPCS: 36415; 85027; 88305 ×2; 59812; J2250; J3490 ×3; J1885; J3010; J2405; J7060; J2704; 1965

== ENCOUNTER 2019-03-14 20:02 | Emergency (ER) | payer OTHER ==
[2019-03-14] MEDS ORDERED: NORMAL SALINE 500 ML IV ONE (20:40)
[2019-03-14] MEDS ORDERED: DIPHENHYDRAMINE HCL 50 MG/ML VIAL IV ONE (20:41)
[2019-03-14] MEDS ORDERED: PROCHLORPERAZINE EDISYLATE INJ 10 MG/2 ML VIAL IV ONE (20:41)
[2019-03-14] MEDS ORDERED: KETOROLAC TROMETHAMINE INJ/PF 30 MG/1 ML SDV IV ONE (20:41)
--- NOTE | 2019-03-14 20:43 | ER Document Report ---
ED Medical Screen (RME) - General Chief Complaint: Headache Stated Complaint: ABDOMINAL PAIN, HEADACHE Time Seen by Provider: 03/14/19 20:40 Mode of Arrival: Ambulatory Information source: Patient Notes: 18-year-old female presented to ED for complaint of migraine since 9 AM. She states she then laid down to go to sleep when she woke up she was migraine was much worse and she was nauseated with vomiting and pale. She states she then felt very weak. She is alert oriented respirations regular and unlabored speaking in full sentences and is able to walk. I did ask her head she been to the emergency room for her migraine before she stated yes states that has she had a Compazine Toradol and Benadryl cocktail she said yes it works like a dream so I have ordered it for her. I have greeted and performed a rapid initial assessment of this patient. A comprehensive ED assessment and evaluation of the patient, analysis of test results and completion of medical decision making process will be conducted by an additional ED providers. TRAVEL OUTSIDE OF THE [place] IN LAST 30 DAYS: No - Related Data Allergies/Adverse Reactions: nadolol Adverse Reaction (Verified 12/09/18 19:01) Alopecia Past Medical History - Past Medical History Cardiac Medical History: Denies: Hx Coronary Artery Disease, Hx Heart Attack, Hx Hypertension Pulmonary Medical History: Denies: Hx Asthma, Hx Bronchitis, Hx COPD, Hx Pneumonia Neurological Medical History: Reports: Hx Migraine. Denies: Hx Cerebrovascular Accident, Hx Seizures Renal/ Medical History: Denies: Hx Peritoneal Dialysis Musculoskeltal Medical History: Denies Hx Arthritis Past Surgical History: Reports: Hx Dilation and Curettage - Immunizations Immunizations up to date: Yes Hx Diphtheria, Pertussis, Tetanus Vaccination: Yes History of Influenza Vaccine for 04/2017 - 09/2017 Season: No Physical Exam - Vital signs Vitals: Temp Pulse Resp BP Pulse Ox 98.1 F 93 18 118/70 97 03/14/19 20:06 03/14/19 20:06 03/14/19 20:06 03/14/19 20:06 03/14/19 20:06 Course - Vital Signs Vital signs: Temp Pulse Resp BP Pulse Ox 98.1 F 93 18 118/70 97 03/14/19 20:06 03/14/19 20:06 03/14/19 20:06 03/14/19 20:06 03/14/19 20:06
--- NOTE | 2019-03-14 21:34 | ER Document Report ---
ED Headache - General Chief Complaint: Headache Stated Complaint: ABDOMINAL PAIN, HEADACHE Time Seen by Provider: 03/14/19 20:40 Mode of Arrival: Ambulatory Notes: Patient is a 18-year-old female that comes emergency department for chief complaint of a headache. Headache started at about 9 AM this morning, patient attempted to sleep it off but just developed a worsening headache over the course of the day, headache worsened to the point that she started throwing up. Patient states she has had headaches like this many times in the past over the course of her life and this is not different. She has had negative imaging of her head reportedly. She denies head injury, fever, focal numbness or weakness. She states that with headaches like this in the past she has had excellent results with Compazine, Benadryl, Toradol and she was given this by orders in triage. She received this a few minutes ago. She denies medical history otherwise, LMP within the past week. Boyfriend at bedside. TRAVEL OUTSIDE OF THE [place] IN LAST 30 DAYS: No - Related Data Allergies/Adverse Reactions: nadolol Adverse Reaction (Verified 12/09/18 19:01) Alopecia Past Medical History - General Information source: Patient - Social History Smoking Status: Never Smoker Frequency of alcohol use: None Drug Abuse: None Lives with: Family Family History: Reviewed & Not Pertinent Patient has suicidal ideation: No Patient has homicidal ideation: No - Past Medical History Cardiac Medical History: Denies: Hx Coronary Artery Disease, Hx Heart Attack, Hx Hypertension Pulmonary Medical History: Denies: Hx Asthma, Hx Bronchitis, Hx COPD, Hx Pneumonia Neurological Medical History: Reports: Hx Migraine. Denies: Hx Cerebrovascular Accident, Hx Seizures Renal/ Medical History: Denies: Hx Peritoneal Dialysis Musculoskeletal Medical History: Denies Hx Arthritis Past Surgical History: Reports: Hx Dilation and Curettage - Immunizations Immunizations up to date: Yes Hx Diphtheria, Pertussis, Tetanus Vaccination: Yes Review of Systems - Review of Systems Constitutional: No symptoms reported EENT: No symptoms reported Cardiovascular: No symptoms reported Respiratory: No symptoms reported Gastrointestinal: See HPI Genitourinary: No symptoms reported Female Genitourinary: No symptoms reported Musculoskeletal: No symptoms reported Skin: No symptoms reported Hematologic/Lymphatic: No symptoms reported Neurological/Psychological: See HPI Physical Exam - Vital signs Vitals: Temp Pulse Resp BP Pulse Ox 98.1 F 93 18 118/70 97 03/14/19 20:06 03/14/19 20:06 03/14/19 20:06 03/14/19 20:06 03/14/19 20:06 - Notes Notes: GENERAL: Mildly uncomfortable but not in severe distress HEAD: Normocephalic, atraumatic. EYES: Pupils equal, round, and reactive to light. Extraocular movements intact. ENT: Oral mucosa moist, tongue midline. Oropharynx unremarkable. Airway patent. LUNGS: Clear to auscultation bilaterally, no wheezes, rales, or rhonchi. No respiratory distress. HEART: Regular rate and rhythm. No murmur ABDOMEN: Soft, non-tender. Non-distended. EXTREMITIES: Moves all 4 extremities spontaneously. No edema, normal radial and dorsalis pedis pulses bilaterally. No cyanosis. BACK: no cervical, thoracic, lumbar midline tenderness. No saddle anesthesia, normal distal neurovascular exam. Moves all extremities in full range of motion. NEUROLOGICAL: Alert and oriented x3. Normal speech. Cranial nerves II through XII grossly intact. PSYCH: Normal affect, normal mood. SKIN: Warm, dry, normal turgor. No rashes or lesions noted. Course - Re-evaluation Re-evalutation: On my initial evaluation patient is cooperative, has no neurological deficits, does not appear to be in significant distress but appears mildly uncomfortable. Evaluation is otherwise unremarkable. Reportedly patient has had many migraines which were the same in the past and has had treatments including Imitrex in the past as well. She has also had imaging of the brain in the past which was negative. On reevaluation patient is extremely sedated from the 50 mg of Benadryl given by triage, however she is still maintaining her airway. She is too sedated at this time to discharge home. Patient monitored for another hour or so, reevaluated, now she is much improved. She is awake. She denies headache or any other complaints. She is requesting discharge. Discussed options at home, provided with Reglan instructions, discussed follow-up and return precautions. Patient states understanding and agreement. She departed with her significant other. - Vital Signs Vital signs: Temp Pulse Resp BP Pulse Ox 98.1 F 93 12 103/63 97 03/14/19 20:06 03/14/19 20:06 03/15/19 00:01 03/15/19 00:01 03/15/19 00:01 Discharge - Discharge Clinical Impression: Headache Qualifiers: Headache type: unspecified Headache chronicity pattern: acute headache Intractability: not intractable Qualified Code(s): R51 - Headache Vomiting Qualifiers: Vomiting type: unspecified Vomiting Intractability: non-intractable Nausea presence: with nausea Qualified Code(s): R11.2 - Nausea with vomiting, unspecified Condition: Stable Disposition: HOME, SELF-CARE Additional Instructions: Your evaluation, symptoms, and resolution with treatment are very suggestive of a migraine. You can take the prescribed medication if needed for headaches in the future. Reglan can be safely mixed with Benadryl, Tylenol, and ibuprofen all together. Follow-up with primary care for additional evaluation and management of migraines. Return if you worsen including returned or severe headache, vomiting, fever, or any other concerning or worsening symptoms. Prescriptions: Metoclopramide HCl [Reglan] 5 mg PO ASDIR PRN #30 tablet PRN Reason: Forms: Return to Work
[2019-03-15 00:13] VITALS: BP 103/63
== END 2019-03-15 00:22 | disposition home or self-care (01) ==
LOC: ER 20:02
DX: R51 Headache (principal); R11.2 Nausea with vomiting, unspecified; R10.9 Unspecified abdominal pain
CPT/HCPCS: J1200; J1885; J0780; J7040